=== PATIENT | female | born 1970 | race African-American/Black ===

== ENCOUNTER 2016-12-05 01:20 | Inpatient (IN) | payer MEDICAID, OTHER ==
[~2016-12-05] VITALS: Ht 162.6 cm; Wt 54.5 kg
[2016-12-05 01:46] LABS: GLUCOSE,POINT OF CARE 78 MG/DL (70-110)
[2016-12-05 03:28] LABS: BASOPHILS % (AUTO) 0.2 % (0.0-2.0); EOSINOPHILS % (AUTO) 1.5 % (1.0-6.0); HEMATOCRIT 30.3 % (36-46); HEMOGLOBIN 9.7 g/dL (12.0-16.0); LYMPHOCYTES # (AUTO) 1.2 K/uL (1.0-4.8); LYMPHOCYTES % (AUTO) 19.1 % (22.0-44.0); MEAN CORPUSCULAR HEMOGLOBIN 27.7 pg (26.0-34.0); MEAN CORPUSCULAR HGB CONC 32.2 G/dL (31.0-37.0); MEAN CORPUSCULAR VOLUME 86 fL (80-100); MONOCYTES # (AUTO) 0.6 K/uL (0.1-1.0); MONOCYTES % (AUTO) 9.7 % (2.0-9.0); NEUTROPHILS # (AUTO) 4.2 K/uL (1.8-7.7); NEUTROPHILS % (AUTO) 69.5 % (40.0-70.0); PLATELET COUNT (AUTO) 196 K/uL (150-450); RED BLOOD CELL COUNT(AUTO) 3.52 MIL/uL (4.00-5.20); RED CELL DISTRIBUTION WIDTH 17.1 % (11.5-14.5); WHITE BLOOD COUNT (AUTO) 6.1 K/uL (4.5-11.0)
[2016-12-05 03:36] LABS: ANION GAP 12 mmol/L (8-16); CALCIUM, TOTAL 8.3 mg/dL (8.8-10.5); CARBON DIOXIDE 25 mmol/L (22-29); CHLORIDE 101 mmol/L (98-107); CREATININE 0.84 mg/dL (0.60-1.30); GLOMERULAR FILTR. RATE CALC > 60 mL/min (>60); POTASSIUM 3.2 mmol/L (3.5-5.1); SODIUM SERUM 138 mmol/L (136-145); UREA NITROGEN, BLOOD 13 mg/dL (7-18)
[2016-12-05 03:41] LABS: ALANINE AMINOTRANSFERASE 12 U/L (12-78); ALBUMIN 3.5 g/dL (3.4-5.0); ASPARTATE AMINOTRANSFERASE 23 U/L (15-37); BILIRUBIN,TOTAL 0.3 mg/dL (0.1-1.0); TOTAL PROTEIN, SERUM 8.4 g/dL (6.4-8.2)
[2016-12-05 03:51] LABS: APPEARANCE,URINE CLEAR (CLEAR); GLUCOSE, URINE (UA) NEGATIVE (NEGATIVE); KETONES,URINE NEGATIVE (NEGATIVE); LEUKOCYTE ESTERASE ,URINE NEGATIVE (NEGATIVE); OCCULT BLOOD,URINE NEGATIVE (NEGATIVE); PROTEIN,URINE NEGATIVE (NEGATIVE)
[2016-12-05 03:57] LABS: ADD UA MICROSCOPIC NO
[2016-12-05 04:39] LABS: TEMPERATURE, FAHRENHEIT, BG 98.6 FAHREN (96.0-98.6)
[2016-12-05 04:57] LABS: ABG A-A DIFF O2 15.7 mmHg (10-20.0); ABG BASE EXCESS -2.8 mmol/L (-2.0-3.0); ABG HCO3 22.5 mmol/L (22.0-26.0); ABG OXYHEMOGLOBIN 92.1 % (94.0-100.0); ABG PCO2 37 mmHg (35-45); ABG PH 7.399 (7.35-7.450); ALLEN TEST, BLOOD GAS Positive
[2016-12-05] MEDS ORDERED: LORazepam 2 MG/ML VIAL IM ONE (13:00)
[2016-12-05] MEDS ORDERED: DiphenhydrAMINE HCL 50 MG/ML VIAL IM ONE (13:00)
[2016-12-05] MEDS ORDERED: HALOPERIDOL LACTATE 5 MG/ML VIAL IM ONE (13:00)
[2016-12-05] MEDS: HALOPERIDOL 5 MG TABLET PO PRN (21:22)
[2016-12-05] MEDS: LORazepam 2 MG TABLET PO PRN (21:22)
[2016-12-05] MEDS: ZOLPIDEM TARTRATE 10 MG TABLET PO PRN (21:59)
[2016-12-06 12:30] VITALS: BP 140/90
[2016-12-06] MEDS ORDERED: HydrOXYzine PAMOATE 25 MG CAPSULE PO PRN (19:00)
[2016-12-06] MEDS ORDERED: ACETAMINOPHEN 325 MG TABLET PO PRN (20:15)
[2016-12-06] MEDS ORDERED: IBUPROFEN 600 MG TABLET PO PRN (20:15)
[2016-12-06] MEDS ORDERED: POTASSIUM CHLORIDE 20 MEQ ER TABLET PO ONE (20:30)
[2016-12-07] MEDS: ZOLPIDEM TARTRATE 10 MG TABLET PO PRN (00:14)
[2016-12-07 00:15] VITALS: BP 157/88
[2016-12-07 08:05] VITALS: BP 150/83
[2016-12-07] MEDS ORDERED: QUEtiapine FUMARATE 100 MG TABLET PO SCH (09:00)
[2016-12-07] MEDS ORDERED: TRIAMCINOLONE 0.5% 15 GM OINTMENT TP PRN ×2 (11:00→21:00)
[2016-12-07] MEDS: VITAMINS A & D 60 GM OINTMENT TP SCH (17:45)
[2016-12-07] MEDS: MINERAL OIL/PETROLATUM 120 GM CREAM TP SCH (17:45)
[2016-12-07] MEDS: QUEtiapine FUMARATE 300 MG TABLET PO SCH (17:46)
[2016-12-07] MEDS: HALOPERIDOL 5 MG TABLET PO PRN (23:59)
[2016-12-07] MEDS: LORazepam 2 MG TABLET PO PRN (23:59)
[2016-12-08] MEDS: ZOLPIDEM TARTRATE 10 MG TABLET PO PRN (00:46)
[2016-12-08] MEDS: VITAMINS A & D 60 GM OINTMENT TP SCH ×2 (10:13→17:59)
[2016-12-08] MEDS: MINERAL OIL/PETROLATUM 120 GM CREAM TP SCH ×2 (10:13→17:59)
[2016-12-08] MEDS: QUEtiapine FUMARATE 300 MG TABLET PO SCH ×2 (10:13→17:59)
[2016-12-08] MEDS: PredniSONE 5 MG TABLET PO SCH (10:13)
[2016-12-08] MEDS: MULTIVITAMINS WITH MINERALS, THERAPEUTIC TABLET PO SCH (10:13)
[2016-12-08] MEDS: LORazepam 2 MG TABLET PO PRN (19:52)
[2016-12-08] MEDS: HALOPERIDOL 5 MG TABLET PO PRN (19:52)
[2016-12-09] MEDS: MINERAL OIL/PETROLATUM 120 GM CREAM TP SCH ×2 (09:00→16:13)
[2016-12-09] MEDS: VITAMINS A & D 60 GM OINTMENT TP SCH ×2 (09:00→16:13)
[2016-12-09] MEDS: MULTIVITAMINS WITH MINERALS, THERAPEUTIC TABLET PO SCH (10:05)
[2016-12-09] MEDS: PredniSONE 5 MG TABLET PO SCH (10:05)
[2016-12-09] MEDS: QUEtiapine FUMARATE 200 MG TABLET PO SCH ×2 (10:05→16:13)
[2016-12-09] MEDS: HALOPERIDOL 5 MG TABLET PO PRN (10:05)
[2016-12-09] MEDS: LORazepam 2 MG TABLET PO PRN (10:05)
[2016-12-10] MEDS: MINERAL OIL/PETROLATUM 120 GM CREAM TP SCH (07:56)
[2016-12-10] MEDS: MULTIVITAMINS WITH MINERALS, THERAPEUTIC TABLET PO SCH (07:56)
[2016-12-10] MEDS: QUEtiapine FUMARATE 200 MG TABLET PO SCH (07:56)
[2016-12-10] MEDS: PredniSONE 5 MG TABLET PO SCH (07:57)
[2016-12-10] MEDS: VITAMINS A & D 60 GM OINTMENT TP SCH (07:57)
[2016-12-10] MEDS ORDERED: QUET200T PO (10:04)
[2016-12-10] MEDS ORDERED: VITS42.53 TP (10:11)
[2016-12-10] MEDS ORDERED: MULT-248 PO (10:11)
[2016-12-10] MEDS ORDERED: PRED5 PO (10:11)
== END 2016-12-10 14:13 | disposition home or self-care (01) | DRG 751 ==
LOC: EMS 01:23 → EDBD 01:23 → B3A 12-06 11:41 → 3EC 12-06 14:55
PROVIDERS: ADMIT Psychiatry & Neurology Psychiatry; ATTEND Psychiatry & Neurology Psychiatry
DX: F29 Unspecified psychosis not due to a substance or known physiological condition (principal); G92 Toxic encephalopathy; R64 Cachexia; M32.9 Systemic lupus erythematosus, unspecified; F25.0 Schizoaffective disorder, bipolar type; F15.20 Other stimulant dependence, uncomplicated; I10 Essential (primary) hypertension; J45.909 Unspecified asthma, uncomplicated; E87.6 Hypokalemia; L40.9 Psoriasis, unspecified; F17.200 Nicotine dependence, unspecified, uncomplicated; Z98.890 Other specified postprocedural states; Z68.20 Body mass index [BMI] 20.0-20.9, adult; Z59.0 Homelessness; Z88.0 Allergy status to penicillin; Z71.51 Drug abuse counseling and surveillance of drug abuser
CPT/HCPCS: 51702; 70450; 82805; 82962; 96372; 99285; G0480; J1200; J1630; J2060